=== PATIENT | female | born 1970 | race Caucasian/White ===

== ENCOUNTER 2017-06-25 22:33 | Emergency (ER) | payer BC ==
--- NOTE | 2017-06-25 22:59 | EDM.PDOC ---
ED HPI GENERAL MEDICAL PROBLEM - General Chief Complaint: Upper Extremity Injury/Pain Stated Complaint: RIGHT ARM PAIN Time Seen by Provider: 06/25/17 22:59 Source of Information: Reports: Patient - History of Present Illness INITIAL COMMENTS - FREE TEXT/NARRATIVE: HISTORY AND PHYSICAL: History of present illness: [[Patient presents with right wrist pain, 5 out of 10 nonradiating, she slipped while bowling following to her bottom standard catcher herself with her hands first no head injury or loss of consciousness no fever nausea vomiting chills sweats no chest pain shortness breath headache dizziness palpitation about a urine symptoms] Review of systems: As per history of present illness and below otherwise all systems reviewed and negative. Past medical history: As per history of present illness and as reviewed below otherwise noncontributory. Surgical history: As per history of present illness and as reviewed below otherwise noncontributory. Social history: No reported history of drug or alcohol abuse. Family history: As per history of present illness and as reviewed below otherwise noncontributory. Physical exam: HEENT: Atraumatic, normocephalic, pupils reactive, negative for conjunctival pallor or scleral icterus, mucous membranes moist, throat clear, neck supple, nontender, trachea midline. Lungs: Clear to auscultation, breath sounds equal bilaterally, chest nontender. Heart: S1S2, regular, negative for clicks, rubs, or JVD. Abdomen: Soft, nondistended, nontender. Negative for masses or hepatosplenomegaly. Negative for costovertebral tenderness. Pelvis: Stable nontender. Genitourinary: Deferred. Rectal: Deferred. Extremities: Atraumatic, negative for cords or calf pain. Neurovascular unremarkable. Neuro: Awake, alert, oriented. Cranial nerves II through XII unremarkable. Cerebellum unremarkable. Motor and sensory unremarkable throughout. Exam nonfocal. Diagnostics: [Right wrist] Therapeutics: [Splint applied by nurse [place] No. 10 no refill Follow-up with orthopedist ] Impression: Nondisplaced radial fracture closed [Right wrist pain] Definitive disposition and diagnosis as appropriate pending reevaluation and review of above. right hand Pain Score (Numeric/FACES): 8 - Related Data Allergies Allergy/AdvReac Type Severity Reaction Status Date / Time ketorolac [From Toradol] Allergy Swollen Verified 06/25/17 22:59 Tongue metoclopramide [From Reglan] Allergy Other Verified 06/25/17 22:59 Sulfa (Sulfonamide Allergy Anaphylactic Verified 06/25/17 22:59 Antibiotics) Shock Home Meds: Home Meds Furosemide [Furosemide] 10 mg PO DAILY 06/25/17 [History] Levothyroxine [Levothyroxine] 1 tab PO DAILY 06/25/17 [History] Metoprolol Succinate [Metoprolol Succinate] 1 tab PO DAILY 06/25/17 [History] Omeprazole Magnesium [Prilosec Otc] 20 mg PO DAILY 06/25/17 [History] Zolpidem [Ambien] 5 mg PO BEDTIME 06/25/17 [History] Review of Systems - Review of Systems Review Of Systems: ROS reveals no pertinent complaints other than HPI. ED EXAM, GENERAL - Physical Exam Exam: See Below Course - Vital Signs Last Recorded V/S: Last Vital Signs Temp 97.7 F 06/25/17 22:59 Pulse 89 06/25/17 22:59 Resp 18 06/25/17 22:59 BP 142/91 H 06/25/17 22:59 Pulse Ox 95 06/25/17 22:59 - Orders/Labs/Meds Orders: Active Orders 24 hr Category Date Time Status Wrist 2V Rt [CR] Stat Exams 06/25/17 22:52 Taken Meds: Medications Discontinued Medications Generic Name Dose Route Start Last Admin Trade Name Graciela PRN Reason Stop Dose Admin Hydrocodone Bitart/Acetaminophen 1 tab 06/25/17 23:13 [place] 325-5 Mg PO 06/25/17 23:14 ONETIME ONE Departure - Departure Time of Disposition: 23:32 Disposition: Home, Self-Care 01 Condition: Good Clinical Impression: Radial fracture - Discharge Information Referrals: [facility] [Primary Care Provider] - Forms: ED Department Discharge Additional Instructions: Rest Splint for comfort and healing Ice 20 minute intervals 3 times daily as needed Ibuprofen 400 mg 3 times daily 7-10 days Medication as prescribed as needed Follow-up with orthopedist in approximately 2 weeks, call number below for appropriate follow-up to be scheduled [facility] [address], [address] [place] [address] my orthopedic The following information is given to patients seen in the emergency department who are being discharged to home. This information is to outline your options for follow-up care. We provide all patients seen in our emergency department with a follow-up referral. The need for follow-up, as well as the timing and circumstances, are variable depending upon the specifics of your emergency department visit. If you don't have a primary care physician on staff, we will provide you with a referral. We always advise you to contact your personal physician following an emergency department visit to inform them of the circumstance of the visit and for follow-up with them and/or the need for any referrals to a consulting specialist. The emergency department will also refer you to a specialist when appropriate. This referral assures that you have the opportunity for follow-up care with a specialist. All of these measure are taken in an effort to provide you with optimal care, which includes your follow-up. Under all circumstances we always encourage you to contact your private physician who remains a resource for coordinating your care. When calling for follow-up care, please make the office aware that this follow-up is from your recent emergency room visit. If for any reason you are refused follow-up, please contact the emergency department at and asked to speak to the emergency department charge nurse. - My Orders Last 24 Hours: My Active Orders 06/25/17 22:52 Wrist 2V Rt [CR] Stat - Assessment/Plan Last 24 Hours: My Active Orders 06/25/17 22:52 Wrist 2V Rt [CR] Stat
[2017-06-25] MEDS ORDERED: Acetaminophen/HYDROcodone 325-5 MG Tab PO ONE (23:13)
--- NOTE | 2017-06-29 13:20 | CR ---
EXAM DATE: 06/25/17 PATIENT'S AGE: 46 Patient: DOUGLAS VANESSA Facility: [place], [place] Site . Site : [id number] Study: XRay Extremity Right [id number]/[id number]/2017 11:06:52 PM Ordering Physician: Doctor Ward Final Report: INDICATION: injury TECHNIQUE: Two views of the right wrist COMPARISON: None FINDINGS: Bones: Transversely oriented nondisplaced fracture of the distal radial metaphysis. Joint spaces: Unremarkable. Soft tissues: Unremarkable. IMPRESSION: Transversely oriented nondisplaced fracture of the distal radial metaphysis. Dictated by Felipe Ferguson MD @ 06/25/2017 11:24:25 PM Dictated by: Felipe Ferguson MD @ 06/25/2017 23:24:47 (Electronic Signature) Report Signed by Proxy. [facility]
== END 2017-06-25 23:50 | disposition home or self-care (01) ==
LOC: MW.ED 22:33
DX: S52.124A Nondisplaced fracture of head of right radius, initial encounter for closed fracture (principal); Z79.899 Other long term (current) drug therapy; Z88.2 Allergy status to sulfonamides; Z88.6 Allergy status to analgesic agent; Z88.8 Allergy status to other drugs, medicaments and biological substances; W18.40XA Slipping, tripping and stumbling without falling, unspecified, initial encounter; Y93.54 Activity, bowling
CPT/HCPCS: 73100; 99283; A9270; 99282; A4566

== ENCOUNTER 2022-11-17 09:40 | Day surgery (SDC) | payer BC ==
[~2022-11-17 09:40] MED LIST: Dexamethasone 4 MG/ML 5 ML MDV ONE; Lactated Ringers 1,000 ML IV SCH; Lidocaine 2% 5 ML SDV ONE; Ondansetron 4 MG/2 ML SDV ONE; Propofol 200 MG/20 ML SDV ONE; fentaNYL 100 MCG/2 ML SDV ONE
[2022-11-17] MEDS ORDERED: Morphine 2 MG/ML SYRINGE IVPUSH PRN (10:01)
[2022-11-17] MEDS ORDERED: fentaNYL 50 MCG/ML SDV IVPUSH PRN (10:01)
[2022-11-17] MEDS ORDERED: droPERidol 5 MG/2 ML SDV IVPUSH PRN (10:01)
[2022-11-17] MEDS ORDERED: Ondansetron 4 MG/2 ML SDV IVPUSH PRN (10:01)
[2022-11-17] MEDS ORDERED: HYDROmorphone 1 MG/ML Syringe IVPUSH PRN (10:01)
[2022-11-17] MEDS ORDERED: Albuterol 0.083% 2.5 MG/3 ML Neb Soln NEB PRN (10:01)
[2022-11-17] MEDS ORDERED: Naloxone 0.4 MG/ML SDV IVPUSH PRN (10:01)
== END 2022-11-17 11:50 | disposition home or self-care (01) ==
LOC: MW.SDS 09:40
PROVIDERS: ATTEND Obstetrics & Gynecology
DX: N85.01 Benign endometrial hyperplasia (principal); N95.0 Postmenopausal bleeding; N91.1 Secondary amenorrhea; R31.9 Hematuria, unspecified; R39.14 Feeling of incomplete bladder emptying; E78.00 Pure hypercholesterolemia, unspecified; E03.9 Hypothyroidism, unspecified; K21.9 Gastro-esophageal reflux disease without esophagitis; F41.9 Anxiety disorder, unspecified; F32.A Depression, unspecified; I10 Essential (primary) hypertension; J40 Bronchitis, not specified as acute or chronic; N83.209 Unspecified ovarian cyst, unspecified side; G43.909 Migraine, unspecified, not intractable, without status migrainosus; E06.3 Autoimmune thyroiditis; Z98.51 Tubal ligation status; Z90.89 Acquired absence of other organs; Z87.891 Personal history of nicotine dependence; Z88.2 Allergy status to sulfonamides; Z88.5 Allergy status to narcotic agent; Z79.899 Other long term (current) drug therapy; Z88.8 Allergy status to other drugs, medicaments and biological substances
CPT/HCPCS: 58558; J1100; J2704; J3010; J7120; 00952; J2405; J3490

== ENCOUNTER 2023-03-17 13:13 | Emergency (ER) | payer BC ==
[2023-03-17] MEDS ORDERED: Sodium Chloride 0.9% 2.5 ML Syringe FLUSH PRN (13:27)
[2023-03-17] MEDS ORDERED: Sodium Chloride 0.9% 10 ML Syringe FLUSH PRN (13:27)
[2023-03-17 13:49] LABS: BASOPHILS ABSOLUTE AUTO 0.1 K/uL (0.0-0.1); BASOPHILS PERCENT AUTO 0.7 % (0.0-1.5); EOSINOPHILS ABSOLUTE AUTO 0.2 K/uL (0.0-0.7); EOSINOPHILS PERCENT AUTO 3.1 % (0.0-7.0); HEMATOCRIT 41.3 % (36.0-46.0); HEMOGLOBIN 13.6 g/dL (12.0-16.0); LYMPHOCYTES ABSOLUTE AUTO 3.9 K/uL (0.6-2.4); LYMPHOCYTES PERCENT AUTO 50.5 % (16.0-40.0); MEAN CORPUSCULAR HEMOGLOBIN 28.2 pg (27.0-32.0); MEAN CORPUSCULAR HGB CONC 32.9 g/dL (31.0-37.0); MEAN CORPUSCULAR VOLUME 85.5 fL (80.0-98.0); MONOCYTES ABSOLUTE AUTO 0.5 K/uL (0.0-0.8); MONOCYTES PERCENT AUTO 6.7 % (0.0-15.0); NRBC ABSOLUTE 0 K/uL; PLATELET COUNT,PLT 335 K/uL (150-400); RED BLOOD CELL COUNT 4.83 M/uL (4.30-5.90); WHITE BLOOD CELL COUNT,WBC 7.64 K/uL (4.0-11.0)
[2023-03-17 14:06] LABS: INR 0.95 (0.86-1.11); PTT,PARTIAL THROMBOPLSTIN TIME 33.2 SEC (23.9-30.7)
[2023-03-17 14:09] LABS: A/G RATIO 1.2 (0.9-1.6); ALANINE AMINOTRANSFERASE,ALT 37 IU/L (14-63); ALBUMIN 4.5 g/dL (3.4-5.0); ALKALINE PHOSPHATASE 105 U/L (46-116); ASPARTATE AMNIOTRANSFERASE,AST 25 IU/L (15-37); BILIRUBIN TOTAL 0.3 mg/dL (0.2-1.0); BLOOD UREA NITROGEN,BUN 21 mg/dL (7.0-18.0); CALCIUM 9.8 mg/dL (8.5-10.1); CARBON DIOXIDE,CO2 28.8 mmol/L (21.0-32.0); CHLORIDE,CL 98 mmol/L (98-107); CREATININE 1.1 mg/dL (0.6-1.0); EST CRCL DRUG DOSING (CG) 57.28 mL/min; GLUCOSE RANDOM 110 mg/dL (74-106); MAGNESIUM 2.3 mg/dL (1.8-2.4); POTASSIUM,K 3.7 mmol/L (3.5-5.1); PROTEIN TOTAL,TP 8.4 g/dL (6.4-8.2); SODIUM,NA 137 mmol/L (136-145); TSH ULTRASENSITIVE 2.57 uIU/mL (0.36-3.74)
[2023-03-17 14:10] LABS: ESTIMATED GFR 61 mL/min (>60)
[2023-03-17] MEDS ORDERED: Gadobenate Dimeglumine 529 MG/ML 20 ML SDV IVPUSH STA (14:50)
== END 2023-03-17 16:52 | disposition home or self-care (01) ==
LOC: MW.ED 13:13
DX: R20.0 Anesthesia of skin (principal); I10 Essential (primary) hypertension; E03.9 Hypothyroidism, unspecified; K21.9 Gastro-esophageal reflux disease without esophagitis; Z88.2 Allergy status to sulfonamides; Z88.8 Allergy status to other drugs, medicaments and biological substances; Z79.899 Other long term (current) drug therapy
CPT/HCPCS: 36415; 70450; 70553; 80053; 82947; 83735; 84443; 84484; 85025; 85610; 85730; 99284; A9577; 93005; 93010

== ENCOUNTER → 2023-04-15 | Day surgery (SDC) | payer BC ==
[~2023-04-15] MED LIST changes: -Dexamethasone 4 MG/ML 5 ML MDV ONE; +Glycopyrrolate 0.2 MG/ML SDV ONE; -Lidocaine 2% 5 ML SDV ONE; -Ondansetron 4 MG/2 ML SDV ONE; -Propofol 200 MG/20 ML SDV ONE; +Sodium Chloride 0.9% 10 ML Syringe FLUSH PRN; +Sodium Chloride 0.9% 2.5 ML Syringe FLUSH PRN; +Sodium Chloride 0.9% 20 ML SDV IV PRN; +ePHEDrine 50 MG/ML SDV ONE; -fentaNYL 100 MCG/2 ML SDV ONE; +propofoL 50 ML ONE
== END | disposition home or self-care (01) ==
LOC: MW.SDS 11:18
PROVIDERS: ATTEND Surgery
DX: Z12.11 Encounter for screening for malignant neoplasm of colon (principal); K31.7 Polyp of stomach and duodenum; K31.89 Other diseases of stomach and duodenum; K29.50 Unspecified chronic gastritis without bleeding; R13.10 Dysphagia, unspecified; Q39.6 Congenital diverticulum of esophagus; G47.33 Obstructive sleep apnea (adult) (pediatric); K21.9 Gastro-esophageal reflux disease without esophagitis; F41.9 Anxiety disorder, unspecified; F32.A Depression, unspecified; I10 Essential (primary) hypertension; E03.9 Hypothyroidism, unspecified; E66.9 Obesity, unspecified; G43.909 Migraine, unspecified, not intractable, without status migrainosus; Z88.2 Allergy status to sulfonamides; Z88.8 Allergy status to other drugs, medicaments and biological substances; Z79.890 Hormone replacement therapy; Z79.899 Other long term (current) drug therapy; Z87.891 Personal history of nicotine dependence
CPT/HCPCS: 43239; 43251; 45378; J2704; J3490; J7120; 00813